=== PATIENT | male | born 1950 | race Caucasian/White ===

== ENCOUNTER → 2016-10-16 | Outpatient (CLI) | payer OTHER, BC | LOC: HYPER 07:12 | DX: T81.89XA Other complications of procedures, not elsewhere classified, initial encounter (principal); Y83.8 Other surgical procedures as the cause of abnormal reaction of the patient, or of later complication, without mention of misadventure at the time of the procedure; Z96.651 Presence of right artificial knee joint; Z87.891 Personal history of nicotine dependence; Z72.89 Other problems related to lifestyle ==

== ENCOUNTER → 2017-01-03 | Outpatient (CLI) | payer OTHER, BC | LOC: HYPER 11-06 13:48 | DX: T81.4XXD Infection following a procedure, subsequent encounter (principal); T81.31XD Disruption of external operation (surgical) wound, not elsewhere classified, subsequent encounter; G89.4 Chronic pain syndrome; Z87.891 Personal history of nicotine dependence; Z72.89 Other problems related to lifestyle; Y83.8 Other surgical procedures as the cause of abnormal reaction of the patient, or of later complication, without mention of misadventure at the time of the procedure ==

== ENCOUNTER → 2017-01-24 | Outpatient (CLI) | payer OTHER, BC | LOC: HYPER 07:58 | DX: T81.4XXD Infection following a procedure, subsequent encounter (principal); G89.4 Chronic pain syndrome; Z96.651 Presence of right artificial knee joint; Z87.891 Personal history of nicotine dependence; Z72.89 Other problems related to lifestyle; Y83.8 Other surgical procedures as the cause of abnormal reaction of the patient, or of later complication, without mention of misadventure at the time of the procedure ==

== ENCOUNTER → 2017-04-03 | Outpatient (CLI) | payer OTHER, BC | LOC: HYPER 07:13 → ULTRA 07:13 → HYPER 09:30 | DX: L98.8 Other specified disorders of the skin and subcutaneous tissue (principal) ==

== ENCOUNTER 2017-04-08 05:10 | Day surgery (SDC) | payer OTHER, BC ==
[~2017-04-08] VITALS: Ht 180.3 cm; Wt 61.2 kg
--- NOTE | ~2017-04-08 | S ---
[facility] [address] SURGICAL PATH RPT PROCEDURE Name: LIZ TURPIN Room #: [facility] M..#: [id number] Admission: 04/08/17 Date of : 54 Discharge: 04/08/17 Report #: [id number] Path Case #: [id number] PATHOLOGY REPORT COLLECTION DATE: 04/08/2017 RECEIVED DATE: 04/08/2017 SUBMITTING PHYS: Dr. Wellington Jimenez, DO OTHER PHYS: Dr. Angelito Soria SPECIMEN(S) RECEIVED: A.Left lower back fluid cavity and foreign body * * * * * * * * * * * * FINAL DIAGNOSIS: Skin, left lower back fluid cavity and foreign body, excision: - Skin and subcutaneous tissue with moderate acute and chronic inflammation along with fresh hemorrhage. (IUV:db; 04/10/2017) PATHOLOGIST: Geeta Waldron M.D. REPORT ELECTRONICALLY SIGNED BY: Geeta Waldron M.D. DATE/TIME: 04/10/2017 15:55 * * * * * * * * * * * * GROSS PATHOLOGY: The specimen is received in formalin labeled "Liz Turpin, left lower back fluid cavity and foreign body". Received are multiple segments of yellow-beebe fibroadipose tissue with attached light beebe, wrinkled skin measuring 7.8 x 6.3 x 2.2 cm in aggregate dimensions. Sectioning reveals a slight amount of white-beebe fibromembranous tissue, with adherent blood coagulum, suggestive of a previous cavity. A foreign body is not grossly identified. The specimen is submitted representatively in cassette A1. (CAA; 04/09/2017) CLINICAL HISTORY: Left back wound INITIAL CPT CODE(S): 86333 Professional services performed by [facility] at [facility] [address], [place] [address] Technical services performed by [facility] at [address] [place] [address] [address] [place] [address] SURGICAL PATH RPT PROCEDURE Name: LIZ TURPIN Room #: [facility].#: [id number] Admission: 04/08/17 Date of : 54 Discharge: 04/08/17 Report #: [id number] Path Case #: [id number] [place] [address]. [facility] [address] [place] [address] PHONE: [phone] DIRECTOR: Richard Dong M.D. * * * END OF REPORT * * *
[~2017-04-08 05:10] MED LIST: NEXIUM40 MG PO; PRINIVIL20 M1 PO
[2017-04-08 10:53] LABS: HEMATOCRIT 48.1 % (42.0-52.0); HEMOGLOBIN 16.4 gm/dL (14.0-18.0)
[2017-04-08 11:03] VITALS: BP 107/74
[2017-04-08] MEDS ORDERED: NORCO 10-325 T1 EACH PO (13:53)
[2017-04-08 14:19] VITALS: BP 107/74
== END 2017-04-08 15:15 | disposition home or self-care (01) ==
LOC: OR 05:10 → TBA 05:11 → OR 09:44
PROVIDERS: Surgery
DX: T81.89XA Other complications of procedures, not elsewhere classified, initial encounter (principal); I10 Essential (primary) hypertension; K21.9 Gastro-esophageal reflux disease without esophagitis; Z18.89 Other specified retained foreign body fragments; Z87.891 Personal history of nicotine dependence; Z98.890 Other specified postprocedural states; Z96.651 Presence of right artificial knee joint; Z85.828 Personal history of other malignant neoplasm of skin; Z79.899 Other long term (current) drug therapy; Y83.8 Other surgical procedures as the cause of abnormal reaction of the patient, or of later complication, without mention of misadventure at the time of the procedure
CPT/HCPCS: 50010; 50101; 50386; 50403; 62110; 62900; 70005

== ENCOUNTER → 2017-04-09 | Outpatient (CLI) | payer OTHER, BC ==
[~2017-04-09] MED LIST changes: +NORCO 10-325 T1 EACH PO
== END ==
LOC: HYPER 06:52
DX: T81.4XXD Infection following a procedure, subsequent encounter (principal); Z96.651 Presence of right artificial knee joint; Z87.891 Personal history of nicotine dependence; Z72.89 Other problems related to lifestyle; Y83.8 Other surgical procedures as the cause of abnormal reaction of the patient, or of later complication, without mention of misadventure at the time of the procedure

== ENCOUNTER → 2017-04-23 | Outpatient (CLI) | payer OTHER, BC | LOC: HYPER 07:12 | DX: T81.4XXD Infection following a procedure, subsequent encounter (principal); G89.4 Chronic pain syndrome; Z87.891 Personal history of nicotine dependence; Z72.89 Other problems related to lifestyle; Z96.651 Presence of right artificial knee joint; Y83.8 Other surgical procedures as the cause of abnormal reaction of the patient, or of later complication, without mention of misadventure at the time of the procedure ==

== ENCOUNTER → 2017-05-13 | Outpatient (CLI) | payer OTHER, BC | LOC: HYPER 06:46 | DX: T81.4XXD Infection following a procedure, subsequent encounter (principal); G89.4 Chronic pain syndrome; Z87.891 Personal history of nicotine dependence; Z72.89 Other problems related to lifestyle; Z96.651 Presence of right artificial knee joint; Y83.8 Other surgical procedures as the cause of abnormal reaction of the patient, or of later complication, without mention of misadventure at the time of the procedure ==